=== PATIENT | male | born 1940 | race Caucasian/White ===

== ENCOUNTER 2020-08-13 16:23 | Emergency (ER) | payer MEDICARE, BC ==
[2020-08-13] MEDS ORDERED: Ondansetron 4 MG/2 ML SDV IVPUSH ONE (17:31)
[2020-08-13] MEDS ORDERED: HYDROmorphone 1 MG/ML Syringe IVPUSH STA (17:31)
[2020-08-13] MEDS ORDERED: Tamsulosin 0.4 MG Cap.ER PO STA (17:31)
[2020-08-13] MEDS ORDERED: Sodium Chloride 0.9% 1,000 ML IV SCH (17:45)
--- NOTE | 2020-08-13 18:48 | EDM.PDOC ---
ED HPI GENERAL MEDICAL PROBLEM - General Chief Complaint: Flank Pain Stated Complaint: FLANK PAIN Time Seen by Provider: 08/13/20 18:12 Source of Information: Reports: Patient, RN Notes Reviewed History Limitations: Reports: No Limitations - History of Present Illness INITIAL COMMENTS - FREE TEXT/NARRATIVE: Patient is a 80-year-old male who presents to the ED for evaluation of his left- sided flank pain. Patient notes that he has a history of kidney stones, this feels very similar to kidney stones in the past. He would rate his pain a 10 out of 10, and points to his left flank from where he is having pain. Patient is not having any dysuria, or other UTI-like symptoms. He did not take anything for pain management at home. He is afebrile with a temperature 97.7 F. O2 sats 94% on room air. He states that his last stone had to be surgically removed, he is not been known to pass these by himself. Patient notes that the pain started this morning. Treatments COUNTY JUDGE: Reports: Other (see below) Other Treatments COUNTY JUDGE: hydrocodone Flank Pain Score (Numeric/FACES): 10 - Related Data Allergies Allergy/AdvReac Type Severity Reaction Status Date / Time tamsulosin [From Flomax] Allergy Severe Swollen Verified 08/13/20 20:02 Tongue Home Meds: Home Meds Vit A/C/E AC/Znox/Cupric Oxide [Eye Vitamin-Minerals Tablet] 1 tab PO DAILY 08/13/20 [History] ED ROS GENERAL - Review of Systems Review Of Systems: Comprehensive ROS is negative, except as noted in HPI. ED EXAM, RENAL/ - Physical Exam Exam: See Below Exam Limited By: No Limitations General Appearance: Alert, WD/WN, No Apparent Distress Respiratory/Chest: No Respiratory Distress, Lungs Clear, Normal Breath Sounds, No Accessory Muscle Use, Chest Non-Tender Cardiovascular: Normal Peripheral Pulses, Regular Rate, Rhythm, No Murmur GI/Abdominal: Normal Bowel Sounds, Soft, Non-Tender, No Distention, No Mass Extremities: Normal Inspection, Normal Capillary Refill Neurological: Alert, Oriented, Normal Cognition, No Motor/Sensory Deficits Psychiatric: Normal Affect, Normal Mood Skin Exam: Warm, Dry, Intact, Normal Color, No Rash Course - Vital Signs Last Recorded V/S: Last Vital Signs Temp 97.7 F 09/25/20 16:55 Pulse 93 08/13/20 16:55 Resp 16 08/13/20 16:55 BP 189/103 H 08/13/20 16:55 Pulse Ox 94 L 08/13/20 16:55 - Orders/Labs/Meds Orders: Active Orders 24 hr Category Date Time Status Strain Urine [RC] ASDIRECTED Care 08/13/20 17:31 Active UA W/MICROSCOPIC [URIN] Stat Lab 08/13/20 17:31 Ordered Sodium Chloride 0.9% [Normal Saline] 1,000 ml Med 08/13/20 17:45 Active IV ASDIRECTED Medication Orders Sodium Chloride (Normal Saline) 1,000 mls @ 150 mls/hr IV ASDIRECTED EHSAN Last Admin: 08/13/20 18:49 Dose: 150 mls/hr Documented by: Labs: Laboratory Tests 08/13/20 08/13/20 08/13/20 Range/Units 17:26 17:26 19:53 WBC 7.67 (4.23-9.07) K/mm3 RBC 4.80 (4.63-6.08) M/mm3 Hgb 15.2 (13.7-17.5) gm/dl Hct 45.8 (40.1-51.0) % MCV 95.4 H (79.0-92.2) fl MCH 31.7 (25.7-32.2) pg MCHC 33.2 (32.2-35.5) g/dl RDW Std Deviation 47.5 H (35.1-43.9) fL Plt Count 183 (163-337) K/mm3 MPV 9.7 (9.4-12.3) fl Neut % (Auto) 75.3 H (34.0-67.9) % Lymph % (Auto) 12.9 L (21.8-53.1) % Brooke % (Auto) 7.4 (5.3-12.2) % Eos % (Auto) 3.1 (0.8-7.0) Baso % (Auto) 0.3 (0.1-1.2) % Neut # (Auto) 5.77 H (1.78-5.38) K/mm3 Lymph # (Auto) 0.99 L (1.32-3.57) K/mm3 Brooke # (Auto) 0.57 (0.30-0.82) K/mm3 Eos # (Auto) 0.24 (0.04-0.54) K/mm3 Baso # (Auto) 0.02 (0.01-0.08) K/mm3 Sodium 137 (136-145) mEq/L Potassium 4.6 (3.5-5.1) mEq/L Chloride 104 (98-107) mEq/L Carbon Dioxide 23 (21-32) mEq/L Anion Gap 14.6 (5-15) BUN 23 H (7-18) mg/dL Creatinine 1.0 (0.7-1.3) mg/dL Est Cr Clr Drug Dosing 65.74 mL/min Estimated GFR (MDRD) > 60 (>60) mL/min BUN/Creatinine Ratio 23.0 H (14-18) Glucose 154 H (83-115) mg/dL Calcium 8.9 (8.5-10.1) mg/dL Total Bilirubin 0.6 (0.2-1.0) mg/dL AST 44 H (15-37) U/L ALT 32 (16-63) U/L Alkaline Phosphatase 90 (46-116) U/L Total Protein 8.1 (6.4-8.2) g/dl Albumin 3.6 (3.4-5.0) g/dl Globulin 4.5 gm/dL Albumin/Globulin Ratio 0.8 L (1-2) Urine Color Yellow (Yellow) Urine Appearance Clear (Clear) Urine pH 5.5 (5.0-8.0) Ur Specific [place] 1.025 (1.005-1.030) Urine Protein 2+ H (Negative) Urine Glucose (UA) Negative (Negative) Urine Ketones Trace H (Negative) Urine Occult Blood 3+ H (Negative) Urine Nitrite Negative (Negative) Urine Bilirubin Negative (Negative) Urine Urobilinogen 0.2 (0.2-1.0) Ur Leukocyte Esterase Negative (Negative) Meds: Medications Generic Name Dose Route Start Last Admin Trade Name Freq PRN Reason Stop Dose Admin Sodium Chloride 1,000 mls @ 150 mls/hr 08/13/20 17:45 08/13/20 18:49 Normal Saline IV 150 mls/hr ASDIRECTED EHSAN Administration Discontinued Medications Generic Name Dose Route Start Last Admin Trade Name Freq PRN Reason Stop Dose Admin Hydromorphone HCl 1 mg 08/13/20 17:31 08/13/20 18:49 Dilaudid IVPUSH 08/13/20 17:32 1 mg ONETIME STA Administration Hydromorphone HCl 0.5 mg 08/13/20 19:34 08/13/20 20:00 Dilaudid IVPUSH 08/13/20 19:35 0.5 mg ONETIME ONE Administration Ondansetron HCl 4 mg 08/13/20 17:31 08/13/20 18:49 Zofran IVPUSH 08/13/20 17:32 4 mg ONETIME ONE Administration Tamsulosin HCl 0.4 mg 08/13/20 17:31 08/13/20 19:59 Flomax PO 08/13/20 17:32 Not Given ONETIME STA - Re-Assessments/Exams Free Text/Narrative Re-Assessment/Exam: 08/13/20 18:46 Patient presents to the ED for the evaluation of his possible left-sided kidney stone. Labs were obtained, and demonstrate no infection by a CBC, metabolic panel shows a slightly increased BUN, but no elevated creatinine ordered lower GFR. Essentially unremarkable. The CT has not been officially read, but I do appreciate some left hydronephrosis along with ureteral dilatation, with a possible stone in the left UVJ. He is not been able to provide us a urine sample for management at this time. Patient will have IV placed along with IV fluids, 1 mg IV Dilaudid, 4 mg Zofran, and 0.4 mg PO Flomax for management. 08/13/20 19:[address] was read, there is an obstructing stone within the distal left ureter measuring 5.7 mm. Several nonobstructing stone within each kidney. Cysts are noted within the kidneys. Multiple calcified gallstones within the gallbladder, and mild coronary artery calcification is seen, otherwise no acute findings. I was told by nursing staff, the patient states that he is not supposed to take Flomax, as he was told by urology to not take it. He did state he was still having a little bit of pain, I did order another half milligram of IV Dilaudid for pain management. I do believe the patient should be able to pass his stone at 5.7 mm. Hopefully get him home with some pain meds, and have him increase his oral hydration and strain his urine over the weekend and follow-up with his primary care on Sunday or Sunday for further urological management if needed if he does not pass the stone. Departure - Departure Time of Disposition: 20:22 Disposition: Home, Self-Care 01 Condition: Good Clinical Impression: Kidney stone on left side - Discharge Information *PRESCRIPTION DRUG MONITORING PROGRAM REVIEWED*: Yes *COPY OF PRESCRIPTION DRUG MONITORING REPORT IN PATIENT RUDY: No Instructions: Dietary Guidelines to Help Prevent Kidney Stones Referrals: PCP,Not In Area [Primary Care Provider] - Forms: ED Department Discharge Additional Instructions: You were evaluated in the ER today for your left flank pain. A CT was done at this ER visit, this demonstrated a 5.7mm stone within your distal left UVJ (this is close to your bladder and should pass in the next few days). You have been given a strainer, please use every time you use the bathroom to make sure that the kidney stone has passed. Recommend that you increase your oral fluid intake to try to help the stone pass. You have been given a few tablets of pain medication, please take as prescribed. These medications are highly addictive, please take as few as you need to. These medications also may cause constipation, please take a stool softener like MiraLAX while taking these medications. If your pain is not much better in a week's time, you may need to follow up with your primary care physician, for a possible urology referral. Please return to the ED if your symptoms change or worsen. Sepsis Event Note (ED) - Evaluation Sepsis Screening Result: No Definite Risk - Focused Exam Vital Signs: Vital Signs Temp Pulse Resp BP Pulse Ox 08/13/20 16:55 97.7 F 93 16 189/103 H 94 L - My Orders Last 24 Hours: My Active Orders 08/13/20 17:31 Strain Urine [RC] ASDIRECTED UA W/MICROSCOPIC [URIN] Stat 08/13/20 17:45 Sodium Chloride 0.9% [Normal Saline] 1,000 ml IV ASDIRECTED - Assessment/Plan Last 24 Hours: My Active Orders 08/13/20 17:31 Strain Urine [RC] ASDIRECTED UA W/MICROSCOPIC [URIN] Stat 08/13/20 17:45 Sodium Chloride 0.9% [Normal Saline] 1,000 ml IV ASDIRECTED
--- NOTE | 2020-08-13 18:51 | CT ---
CT abdomen and pelvis Technique: Multiple axial sections were obtained from above the dome of the diaphragm inferiorly through the pubic symphysis. Intravenous and oral contrast not utilized. Study has been performed as a ureteral stone protocol. Findings: Slight incline kidney shows dilated collecting system as well as the ureter these findings are caused by an obstructing stone measuring 5.7 mm within the distal left ureter which is approximately 3 cm from the UVJ. Additional small nonobstructing calculus is noted within the lower left kidney. Small nonobstructing stone is noted within the mid to upper right kidney. Cyst is noted within the lower left kidney measuring approximately 1.5 cm. Larger cyst is noted anteriorly off the mid right kidney measuring 5.0 cm. Small exophytic cyst is noted off the upper left kidney measuring about 1.7 cm. Other findings: Visualized lung bases show nothing acute. Noncontrast appearance of the liver shows no discrete abnormality. Coronary artery calcification is partially visualized. Spleen size is normal. Adrenal glands show no nodule. Gallbladder shows evidence of multiple calcified gallstones. Pancreas shows no discrete abnormality. Aorta shows mild atherosclerotic calcification without aneurysm. No retroperitoneal adenopathy or mesenteric abnormalities are seen. No pelvic mass or adenopathy is seen. No free fluid is seen. Appendix is not visualized with certainty. Bone window settings were reviewed which show scattered degenerative change within the spine. No acute osseous finding is seen. Impression: 1. Obstructing stone within the distal left ureter measuring 5.7 mm. 2. Nonobstructing stone within each kidney. Cysts are noted within the kidneys. 3. Multiple calcified gallstones within the gallbladder. 4. Mild coronary artery calcification is seen. Diagnostic code #3 This report was dictated in MDT
[2020-08-13] MEDS ORDERED: HYDROmorphone 0.5 MG/0.5 ML Syringe IVPUSH ONE (19:34)
== END 2020-08-13 20:45 | disposition home or self-care (01) ==
LOC: JD.ED 16:23
DX: N13.2 Hydronephrosis with renal and ureteral calculous obstruction (principal); Z88.8 Allergy status to other drugs, medicaments and biological substances
CPT/HCPCS: 36415; 74176; 80053; 81001; 85025; 96361; 96374; 96375; 96376; 99284; J1170; J2405; J7030; 99283